=== PATIENT | female | born 1965 | race Caucasian/White ===

== ENCOUNTER 2017-04-12 07:05 | Emergency (ER) | END 2017-04-12 11:20 | disposition home or self-care (01) ==

== ENCOUNTER 2017-08-02 07:20 | Emergency (ER) | END 2017-08-02 10:10 | disposition home or self-care (01) ==

== ENCOUNTER 2017-11-30 18:38 | Emergency (ER) | END 2017-11-30 23:32 | disposition home or self-care (01) ==

== ENCOUNTER 2018-06-09 09:04 | Day surgery (SDC) | payer OTHER ==
[~2018-06-09] VITALS: Ht 157.5 cm; Wt 75.8 kg
[~2018-06-09 09:04] MED LIST: ERGO500013 PO; FER325 PO; IBUP800T48 PO
[2018-06-09 10:00] VITALS: Ht 157.5 cm; Wt 75.8 kg
--- NOTE | 2018-06-09 10:32 | PREAC ---
Date/Time of Note Date/Time of Note DATE: 06/09/18 TIME: 10:31 Anesthesia Eval and Record Evaluation Time Pre-Procedure Interview DATE: 06/09/18 TIME: 10:31 Age 52 Sex female NPO: 8 hrs Preoperative diagnosis GERD,screening Planned procedure EGD,colonoscopy Past Medical History Past Medical History: Includes Musculoskeletal: Osteoarthritis GI: GERD Surgery & Anesthesia Issues No known issue Meds Anticoagulation: No Beta Alicia within 24 hr: No Reason Beta Alicia not given: Pt. not on B-Alicia Active Scripts Ibuprofen* (Motrin*) 800 Mg Tab, 800 MG PO Q6H PRN for PAIN AND OR ELEVATED TEMP, #30 TAB Prov:NATALIA DE LEÓN DO 11/30/17 Reported Medications Ferrous Sulfate* (Ferrous Sulfate*) 325 Mg Tabec, 325 MG PO DAILY, TAB 11/30/17 Ergocalciferol (Vitamin D2) (VITAMIN D2) 50,000 Unit Capsule, 54523 UNIT PO QSUNDAY, CAP TAKE 1 CAP BY MOUTH ONCE A WEEK. (QSUN) 11/30/17 Meds reviewed: Yes Allergies Coded Allergies: No Known Allergy (Unverified , 06/09/18) Allergies Reviewed: Yes Labs/Studies Labs Reviewed: Reviewed by anesthesiologist test: Negative Studies: ECG, CXR Pre-procedure Exam Airway: Adequate mouth opening, Adequate thyromental dist Mallampati: Mallampati III Teeth: Normal Lung: Normal Heart: Normal ASA Physical Status ASA physical status: 2 Emergency: None Planned Anesthetic General/MAC: MAC Planned Pain Management Parenteral pain med Pre-operative Attestations Prior to commencing anesthesia and surgery, the patient was re-evaluated, there was verification of: *The patient's identity *The results of appropriate recent lab work and preoperative vital signs *The above evaluation not changing prior to induction *Anesthetic plan, risk benefits, alternative and complications discussed with patient/family; questions answered; patient/family understands, accepts and wishes to proceed. BOSSMAN MENENDEZ MD Jun 09, 2018 10:32
[2018-06-09] MEDS ORDERED: LIDOCAINE 2% (SDV) 5 ML INJ ONE (10:47)
[2018-06-09] MEDS ORDERED: PROPOFOL 80 ML ONE (10:47)
[2018-06-09 10:48] VITALS: BP 130/78; PULSE 76; RESP 18
[2018-06-09 11:20] VITALS: BP 101/60; PULSE 73; RESP 20
[2018-06-09 11:25] VITALS: BP 101/61; PULSE 72; RESP 19
[2018-06-09 11:42] VITALS: BP 121/78; PULSE 70; RESP 18
--- NOTE | 2018-06-09 12:09 | PAC ---
Date/Time of Note Date/Time of Note DATE: 06/09/18 TIME: 12:09 Post-Anesthesia Notes Post-Anesthesia Note Last documented vital signs Vital Signs Date Temp Pulse Resp B/P (MAP) Pulse Ox O2 O2 Flow FiO2 Time Delivery Rate 06/09/18 70 18 121/78 99 Room Air 11:42 (92) 06/09/18 97.8 11:20 Activity: WNL Respiratory function: WNL Cardiovascular function: WNL Mental status: Baseline Pain reasonably controlled: Yes Hydration appropriate: Yes Nausea/Vomiting absent: Yes BOSSMAN MENENDEZ MD Jun 09, 2018 12:09
== END 2018-06-09 12:23 | disposition home or self-care (01) ==
LOC: GIL 09:04
PROVIDERS: ATTEND Internal Medicine Gastroenterology
DX: Z12.11 Encounter for screening for malignant neoplasm of colon (principal); K29.50 Unspecified chronic gastritis without bleeding; K64.1 Second degree hemorrhoids
CPT/HCPCS: 88305; 88312

== ENCOUNTER → 2018-07-26 | Outpatient (CLI) | payer OTHER ==
--- NOTE | 2018-07-26 10:14 | CONS ---
Assessment/Plan Assessment/Plan Hospital Course (Demo Recall) 52-year-old female with 9-month history of left knee pain and now left heel pain. Patient has symptoms of both patellofemoral syndrome as well as possible early stages of arthritis versus small meniscus tear. She also has plantar fasciitis. Stretching exercises and massaging for plantar fasciitis reviewed in the clinic. Patient did have an MRI of her left knee but no report or imaging was available for review today. Plan: Submit authorization for physical therapy for patellofemoral syndrome as well as mental fasciitis Submit authorization for left knee steroid injection Continue NSAIDs Perform stretching exercises shown in clinic Follow-up after authorization for steroid injection. Consultation Date/Type/Reason Admit Date/Time Date of Consultation: Jul 26, 2018 Reason for Consultation Left knee and heel pain Date/Time of Note DATE: 07/26/18 TIME: 10:08 Hx of Present Illness This is a 52-year-old female with a chief complaint of left knee and now he will pain. The pain began approximately 9 months ago. The patients pain is in the posterior and medial aspect of the left knee. Pain is radiating to the lower leg. The pain is rated as a 9/10. Patient denies complaints of numbness or tingling. The pain is exacerbated by sitting, climbing stairs and ambulation. The heel pain is especially bad in the morning when she wakes up and stands on her feet. Pain is relieved by NSAID's. Patient has been taking an anti- inflammatory from [place] on a p.r.n. basis as well as using ice. Duration: 9 months Injury: No Walking tolerance: Limited Limp: Yes Support: No Swelling: Yes Crepitation: No Instability: No Stairs: Difficult Physical Therapy: Yes. Patient went to several sessions for her knee. Did not help Injections: No NSAIDs: Anti-inflammatory from [place] Prior surgery: No Back pain: No Hip pain: No Risk of AVN : No Patient denies fever, chills, shortness of breath, chest pain, nausea/vomiting, constipation, diarrhea, numbness, and tingling. Past Medical History Sinus problems Home Meds Active Scripts Ibuprofen* (Motrin*) 800 Mg Tab, 800 MG PO Q6H PRN for PAIN AND OR ELEVATED TEMP, #30 TAB Prov:NATALIA DE LEÓN DO 11/30/17 Reported Medications Ferrous Sulfate* (Ferrous Sulfate*) 325 Mg Tabec, 325 MG PO DAILY, TAB 11/30/17 Ergocalciferol (Vitamin D2) (VITAMIN D2) 50,000 Unit Capsule, 93783 UNIT PO QSUNDAY, CAP TAKE 1 CAP BY MOUTH ONCE A WEEK. (QSUN) 11/30/17 Allergies: Coded Allergies: No Known Allergy (Unverified , 06/09/18) Past Surgical History Past Surgical Hx: no surgical history Family History Significant Family History: no pertinent family hx Social History Alcohol Use: none Smoking Status: Never smoker Drug Use: none Exam/Review of Systems Exam Vitals Weight: 165 pounds Height: 5 foot 2 inches Temperature: 90.3 Heart Rate: 89 Blood Pressure: 127/76 Exam General: Alert, oriented x3. No Acute Distress. Heart: Regular rate and rhythm. Lungs: No respiratory distress. No accessory muscle use. Musculoskeletal: Left Knee This is a well developed female who is alert, oriented times three and in no apparent distress. Skin is intact over the left knee as well as the lower extremity with no shyam sions, lacerations, or ulcerations. Observation of the patient's gait reveals a nonantalgic gait with No thrust. Frontal plane alignment is neutral. There is pain on palpation of medial joint line and posterior knee. There is no joint effusion. There is significant tenderness to palpation along the plantar fascia and it is fairly tight. No swelling the patient demonstrates grinding anteriorly with ROM. Range of motion: 0 extension to approximately 130 degrees of flexion. Collateral ligament testing reveals no instability with varus or valgus stress at 0 and 30 degrees of flexion. Negative Freida's and negative posterior drawer. Neurovascularly intact with 5/5 EHL/tibialis anterior/gastroc. Sensation intact to light touch in a sural, saphenous, deep peroneal, superficial peroneal, medial and lateral plantar nerve distribution. Palpable, symmetric dorsalis pedis and posterior tibial pulses in both lower extremities. Hip examination normal. Imaging Imaging The patient received a standard set of films today that were personally reviewed. Imaging included a standing bilateral knee AP, PA flexion, merchant views and a dedicated lateral of the affected knee: There is neutral alignment of the knee. There is no loss of joint space in any compartment(s). There is no osteophyte formation. There is no subchondral sclerosis. There are no subchondral cysts. No significant degenerative changes. No fracture. No acute abnormalities. HAYLIE FONSECA MD Jul 26, 2018 10:14
--- NOTE | 2018-07-27 08:29 | RADRPT ---
PROCEDURE: Bilateral knee series CLINICAL INDICATION: Pain TECHNIQUE: AP weightbearing, PA axial weightbearing, lateral weightbearing and sunrise views were o btained of the right left knees. 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 No acute fractures or dislocations. Bony mineralization is normal. No focal bony blastic or lytic lesions. Bilateral small to moderate knee joint effusions. Soft tissues are otherwise unremarkable. IMPRESSION: 1. 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 2. Small to moderate bilateral knee joint effusions. RPTAT:AAJJ Physician Josh Date Time Electronically viewed and signed by Brian Ayala Physician on 07/27/2018 08:29 BM/
== END | disposition home or self-care (01) ==
LOC: HKI 09:19
PROVIDERS: ATTEND Orthopaedic Surgery Adult Reconstructive Orthopaedic Surgery
DX: M25.562 Pain in left knee (principal); M79.672 Pain in left foot; M72.2 Plantar fascial fibromatosis
CPT/HCPCS: 73564; Z7500; G0463

== ENCOUNTER → 2018-09-02 | Outpatient (CLI) | payer OTHER ==
--- NOTE | 2018-09-02 17:16 | CONS ---
Consult Date/Type/Reason Admit Date/Time Initial Consult Date Date/Time of Note DATE: 09/02/18 TIME: 17:13 Subjective 52-year-old female follows up today for left knee steroid injection. She was previously diagnosed with a complex degenerative meniscus tear. She has no mechanical symptoms. She has not started physical therapy yet. Patient believes she did receive authorization. Symptoms have not changed since last visit. Objective Vitals Weight: 165 pounds Height: 5 foot 2 inches Heart Rate: 111 Blood Pressure: 133/71 Exam General: Awake, alert, in no acute distress, pleasant and cooperative Heart: regular rhythm Lungs: breathing comfortably, no tachypnea or dyspnea MUSCULOSKELETAL: Left lower extremity. Skin is intact. No erythema. Sensation intact to light touch in a sural, saphenous, deep peroneal, superficial peroneal, medial and lateral plantar nerve distribution. Motor is intact, patient able to dorsiflex and plantarflex ankle and extend and flex great toe. Dorsalis Pedis pulse +2, Brisk capillary refill. Compartments are soft. Calves non-tender to palpation bilaterally. Results/Medications Home Meds Active Scripts Ibuprofen* (Motrin*) 800 Mg Tab, 800 MG PO Q6H PRN for PAIN AND OR ELEVATED TEMP, #30 TAB Prov:NATALIA DE LEÓN DO 11/30/17 Reported Medications Ferrous Sulfate* (Ferrous Sulfate*) 325 Mg Tabec, 325 MG PO DAILY, TAB 11/30/17 Ergocalciferol (Vitamin D2) (VITAMIN D2) 50,000 Unit Capsule, 53548 UNIT PO QSUNDAY, CAP TAKE 1 CAP BY MOUTH ONCE A WEEK. (QSUN) 11/30/17 Assessment/Plan Hospital Course (Demo Recall) 52-year-old female with left knee medial meniscus tear. She is not presenting with any mechanical symptoms. At this time conservative treatment is most appropriate. Will administer left knee steroid injection today. Patient is to start physical therapy. Follow-up in 3 months. Assessment/Plan (Daily) Left knee steroid injection procedure: Risks and benefits of steroid injection reviewed with patient. The risks include infection, failure, pain, swelling, nerve/tendon/ligament damage. The patient verbalized understanding and verbal consent was obtained prior to procedure. The left knee was prepped in a sterile fashion with alcohol and betadine the site of injection was confirmed. Anteromedial approach was used. The skin and capsule was anesthetized with 3mL 1% lidocaine. The left knee was injected with 2mL 1% lidocaine, 2mL 0.25% bupivacaine, 40mg Depo-Medrol. Injection flowed freely. Good hemostasis was achieved and no complications noted. The patient tolerated the procedure well. Limit activity and ice for 24-48 hours HAYLIE FONSECA MD September 02, 2018 17:16
== END | disposition home or self-care (01) ==
LOC: HKI 15:35
PROVIDERS: ATTEND Orthopaedic Surgery Adult Reconstructive Orthopaedic Surgery
DX: S83.232D Complex tear of medial meniscus, current injury, left knee, subsequent encounter (principal); X58.XXXD Exposure to other specified factors, subsequent encounter
CPT/HCPCS: 20610; Z7500; Z7610; G0463